=== PATIENT | female | born 1985 | race Caucasian/White ===

== ENCOUNTER 2016-09-19 14:24 | Inpatient (IN) ==
[2016-09-19] MEDS ORDERED: SODIUM CHLORIDE 1,000 ML IV ONE (15:00)
[2016-09-19 15:02] VITALS: BMI 24.1
[2016-09-19] MEDS: SODIUM CHLORIDE 0.9%-KCL 20 MEQ 1,000 ML IV SCH ×2 (15:03→16:08)
[2016-09-19 15:50] LABS: BASOPHILS % (AUTO) 0.3 % (0.0-3.0); EOSINOPHILS % (AUTO) 0.7 % (0.0-7.0); HEMATOCRIT 36.5 % (37.0-47.0); HEMOGLOBIN 12.5 g/dl (12.0-16.0); LYMPHOCYTES # (AUTO) 0.7 K/uL (0.60-3.4); LYMPHOCYTES % (AUTO) 23.5 (10.0-50.0); MEAN CORPUSCULAR HGB CONC 34.2 (31.8-35.4); MEAN CORPUSCULAR VOLUME 78.8 fl (81.0-99.0); MONOCYTES # (AUTO) 0.3 K/uL (0.4-2.0); MONOCYTES % (AUTO) 8.7 (0-10); NEUTROPHILS % (AUTO) 66.8; PLATELET COUNT 150 10^3/uL (140-440); RED BLOOD COUNT 4.63 10^6/ul (4.20-5.40); WHITE BLOOD COUNT 2.98 K/ul (4.6-10.2)
[2016-09-19] MEDS: TESSALON PERLES PO SCH ×2 (16:00→20:01)
[2016-09-19] MEDS: ROCEPHIN 1 GM in SODIUM CHLORIDE 100 ML IV SCH (16:00)
[2016-09-19 16:05] LABS: ALBUMIN/GLOBULIN RATIO 1.38; ANION GAP 11.6; BILIRUBIN,TOTAL 0.69 mg/dL (0.00-1.20); BUN/CREATININE RATIO 12.19; CALCIUM 8.8 mg/dL (8.2-10.2); CREATININE 0.82 mg/dL (0.60-1.30); POTASSIUM 3.6 mmol/L (3.5-5.10); TOTAL PROTEIN 6.9 g/dL (6.4-8.2)
[2016-09-19] MEDS: TYLENOL PO PRN (16:06)
[2016-09-19 16:19] LABS: FLU INTERNAL QC INTERNAL QC VALID; RAPID FLU A NEGATIVE (NEGATIVE); RAPID FLU B NEGATIVE (NEGATIVE)
[2016-09-19 18:01] LABS: SERUM PREGNANCY INTERNAL QC INTERNAL QC VALID
[2016-09-19] MEDS: TORADOL IVP PRN (19:09)
--- NOTE | 2016-09-19 19:54 | DI ---
EXAM: Two-view chest HISTORY: Bronchitis COMPARISON: None. FINDINGS: The cardiomediastinal silhouette is normal. The lungs are well expanded and clear bilate rally. Bony structures are unremarkable. IMPRESSION: No evidence of active pulmonary disease.
[2016-09-19 20:36] LABS: BILIRUBIN,URINE Negative (NEGATIVE); KETONES,URINE Negative (NEGATIVE); LEUKOCYTE ESTERASE ,URINE Negative (NEGATIVE); NITRITE,URINE Negative (NEGATIVE); PH,URINE 6.5 (5-9); PROTEIN,URINE Negative (NEGATIVE); URINE, BLOOD Negative (NEGATIVE)
[2016-09-19 20:37] LABS: ADD URINE MICROSCOPIC NO
[2016-09-20] MEDS: TYLENOL PO PRN (01:01)
[2016-09-20] MEDS: SODIUM CHLORIDE 0.9%-KCL 20 MEQ 1,000 ML IV SCH ×2 (03:40→14:51)
[2016-09-20] MEDS: TORADOL IVP PRN ×2 (08:28→19:24)
[2016-09-20] MEDS: TESSALON PERLES PO SCH ×3 (08:28→21:46)
[2016-09-20] MEDS: ROCEPHIN 1 GM in SODIUM CHLORIDE 100 ML IV SCH (08:28)
[2016-09-21] MEDS: SODIUM CHLORIDE 0.9%-KCL 20 MEQ 1,000 ML IV SCH ×4 (00:36→22:11)
[2016-09-21] MEDS: TORADOL IVP PRN ×2 (03:06→22:21)
[2016-09-21 07:18] LABS: BASOPHILS % (AUTO) 0.4 % (0.0-3.0); EOSINOPHILS % (AUTO) 0.4 % (0.0-7.0); HEMATOCRIT 31.2 % (37.0-47.0); HEMOGLOBIN 10.3 g/dl (12.0-16.0); LYMPHOCYTES # (AUTO) 1.8 K/uL (0.60-3.4); LYMPHOCYTES % (AUTO) 62.2 (10.0-50.0); MEAN CORPUSCULAR HEMOGLOBIN 26.5 pg (27.0-31.0); MEAN CORPUSCULAR VOLUME 80.4 fl (81.0-99.0); MONOCYTES # (AUTO) 0.2 K/uL (0.4-2.0); MONOCYTES % (AUTO) 8.5 (0-10); NEUTROPHILS # (AUTO) 0.8 K/ul (2.0-6.9); NEUTROPHILS % (AUTO) 28.5; PLATELET COUNT 114 10^3/uL (140-440); RED BLOOD COUNT 3.88 10^6/ul (4.20-5.40); WHITE BLOOD COUNT 2.83 K/ul (4.6-10.2)
[2016-09-21 07:35] LABS: BUN/CREATININE RATIO 6.06; CALCIUM 8.2 mg/dL (8.2-10.2); CREATININE 0.66 mg/dL (0.60-1.30)
[2016-09-21 08:09] LABS: FLU INTERNAL QC INTERNAL QC VALID; RAPID FLU A NEGATIVE (NEGATIVE); RAPID FLU B NEGATIVE (NEGATIVE)
[2016-09-21] MEDS: TESSALON PERLES PO SCH ×3 (08:55→20:18)
[2016-09-21] MEDS: ROCEPHIN 1 GM in SODIUM CHLORIDE 100 ML IV SCH (08:56)
[2016-09-21] MEDS: TYLENOL PO PRN (12:25)
[2016-09-21] MEDS ORDERED: ATIVAN PO SCH (22:00)
[2016-09-22 05:22] LABS: EOSINOPHILS % (AUTO) 0.3 % (0.0-7.0); HEMATOCRIT 31.6 % (37.0-47.0); HEMOGLOBIN 10.3 g/dl (12.0-16.0); LYMPHOCYTES # (AUTO) 1.8 K/uL (0.60-3.4); LYMPHOCYTES % (AUTO) 57.8 (10.0-50.0); MEAN CORPUSCULAR HEMOGLOBIN 26.5 pg (27.0-31.0); MEAN CORPUSCULAR HGB CONC 32.6 (31.8-35.4); MEAN CORPUSCULAR VOLUME 81.2 fl (81.0-99.0); MONOCYTES # (AUTO) 0.2 K/uL (0.4-2.0); MONOCYTES % (AUTO) 6.3 (0-10); NEUTROPHILS # (AUTO) 1.1 K/ul (2.0-6.9); NEUTROPHILS % (AUTO) 35.6; PLATELET COUNT 113 10^3/uL (140-440); RED BLOOD COUNT 3.89 10^6/ul (4.20-5.40); WHITE BLOOD COUNT 3.03 K/ul (4.6-10.2)
[2016-09-22 05:44] LABS: ANION GAP 9.8; BUN/CREATININE RATIO 8.82; CALCIUM 8.4 mg/dL (8.2-10.2); CREATININE 0.68 mg/dL (0.60-1.30); POTASSIUM 3.8 mmol/L (3.5-5.10)
[2016-09-22] MEDS: TESSALON PERLES PO SCH ×2 (08:24→14:41)
[2016-09-22] MEDS: ROCEPHIN 1 GM in SODIUM CHLORIDE 100 ML IV SCH (08:24)
[2016-09-22] MEDS: SODIUM CHLORIDE 0.9%-KCL 20 MEQ 1,000 ML IV SCH (10:06)
[2016-09-22 17:01] VITALS: BP 111/68; TEMP 97.5
--- NOTE | 2016-11-06 12:37 | HP ---
DISCUSSION: This is a 31 year old lady who called the office noting having a upper respiratory type symptoms with cough, congestion and fever. She was started on antibiotics, flu swabs were negative. She presented to the office saying that she was much worse and could not eat or drink she felt so bad. In the office she appeared clinically dehydrated with dry oral mucosa and rhonchus sounds in her chest. I was concerned about the possibility of pneumonia therefore she was admitted to my services for antibiotics, IV hydration and treatment for what I thought was going to end up being pneumonia. 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 No history of alcohol, tobacco or illicit drug use noted. FAMILY HISTORY: Reviewed and thought not to pertinent to discussion. REVIEW OF SYSTEMS: She has a mild headache with cough, she has had a productive cough with no hemoptysis, she has only been short of breath only with extreme exertion. No abdominal pain, blood in the stool, urinary symptoms or seizures. PHYSICAL EXAMINATION: V/S: Temperature 100, respiratory 18, blood pressure 120/80. HEENT: Pupils are round. NECK: Supple. CHEST: Scattered bronchi. CARDIOVASCULAR: Regular rate and rhythm. ABDOMEN: Soft, nontender. EXTREMITIES: Distal extremities without cyanosis or edema. ASSESSMENT: 1. Bronchitis with question early pneumonia 2. Poor appetite with impending dehydration PLAN: 1. Admission 2. Antibiotics 3. Bronchial dilators 4. IV fluids support 5. Please orders. MTDD
--- NOTE | 2016-11-06 12:43 | DS ---
PRINCIPAL DIAGNOSIS: 1. URI with bronchitis 2. Pancytopenia probably related to the above. DISCUSSION: This is a 31 year old lady who called the office noting having a upper respiratory type symptoms with cough, congestion and fever. She was started on antibiotics, flu swabs were negative. She presented to the office saying that she was much worse and could not eat or drink she felt so bad. In the office she appeared clinically dehydrated with dry oral mucosa and rhonchus sounds in her chest. I was concerned about the possibility of pneumonia therefore she was admitted to my services for antibiotics, IV hydration and treatment for what I thought was going to end up being pneumonia. CLINICAL COURSE: She was started on antibiotics, bronchial dilators. Her appetite was very poor. Initial WBC was known to be 2,098 and repeat was found to be 2,800. We continued IV support and antibiotics. She did defervesce. At time of discharge her WBC had come up to 3,000 and her plt count had dropped to 113 however clinically she felt better and at this point we felt that she was stable for discharge. Jody will be discharged on the . We are going to see her this and repeat her CBC. She is going to continue with rest and fluids at home. 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
== END 2016-09-22 18:10 | disposition home or self-care (01) | DRG 153 ==
LOC: MEDSURG B 14:24
PROVIDERS: ADMIT Family Medicine; ATTEND Family Medicine
DX: J06.9 Acute upper respiratory infection, unspecified (principal); J20.9 Acute bronchitis, unspecified; R50.9 Fever, unspecified
CPT/HCPCS: 36415; 80048; 80053; 81001; 84703; 85025; 87040; 87651; 87804; 87880

== ENCOUNTER 2017-02-03 17:41 | Emergency (ER) ==
[2017-02-03 17:46] VITALS: BP 128/84; TEMP 98; BMI 23.5
--- NOTE | 2017-02-03 18:36 | ED.PDOC ---
General ED Provider: Dr. KIM BROOKS Chief Complaint: Finger Pain/Injury Stated Complaint: hand injury Time Seen by Physician: 18:00 (seen with staff) Mode of Arrival: Walk-In Information Source: Patient Exam Limitations: No limitations Primary Care Provider: SILVIO CORDOBA Nursing and Triage Documentation Reviewed and Agree: Yes Musculoskeletal Complaint Exam - Hand/Wrist Complaint/Exam Location of Pain: Reports: Right, Hand, Wrist Mechanism of Injury: Reports: Trauma Onset/Duration: thursday while bowling Symptoms Are: Still present Onset of Pain: Reports: Days Initial Severity: Moderate Current Severity: Mild Location: Reports: Discrete Character: Reports: Aching Alleviating: Reports: Rest Aggravating: Reports: Movement Associated Signs and Symptoms: Denies: Swelling, Redness, Bruising, Fever, Weakness, Numbness, Tingling Differential Diagnoses: Closed Fracture, Sprain, Strain Review of Systems - Review Of Systems Constitutional: Reports: No symptoms Eyes: Reports: No symptoms Ears, Nose, Mouth, Throat: Reports: No symptoms Respiratory: Reports: No symptoms Cardiac: Reports: No symptoms GI: Reports: No symptoms : Reports: No symptoms Musculoskeletal: Reports: Joint pain (right hand ) Skin: Reports: No symptoms Neurological: Reports: No symptoms Endocrine: Reports: No symptoms Hematologic/Lymphatic: Reports: No symptoms All Other Systems: Reviewed and Negative Past Medical History - Past Medical History Previously Healthy: Yes Endocrine: Reports: None Cardiovascular: Reports: None Respiratory: Reports: None Hematological: Reports: None Gastrointestinal: Reports: None Genitourinary: Reports: None Neuro/Psych: Reports: None Musculoskeletal: Reports: None Cancer: Reports: None Last Menstrual Period: last week - Surgical History General Surgical History: Reports: None - Family History Family History: Reports: None - Social History Smoking Status: Never smoker Hx Substance Use: No Alcohol Screening: Occasionally Physical Exam - Physical Exam Appearance: Well-appearing, No pain distress, Well-nourished Eyes: RINA, EOMI, Conjunctiva clear ENT: Ears normal, Nose normal, Oropharynx normal Respiratory: Airway patent, Breath sounds clear, Breath sounds equal, Respirations nonlabored Cardiovascular: RRR, Pulses normal, No rub, No murmur GI/: Soft, Nontender, No masses, Bowel sounds normal, No Organomegaly Musculoskeletal: ROM intact, No edema, No calf tenderness, Limited ROM (5th mcp brusing ) Skin: Warm, Dry, Normal color Neurological: Sensation intact, Motor intact, Reflexes intact, Cranial nerves intact, Alert, Oriented Psychiatric: Affect appropriate, Mood appropriate Critical Care Note - Critical Care Note Total Time (mins): 0 Course - Course Orders, Labs, Meds: Orders Category Date Time Status HAND, RIGHT 3 VIEWS Stat RADS 02/03/17 17:54 Taken WRIST, RIGHT 3 VIEWS Stat RADS 02/03/17 17:55 Taken Vital Signs: Temp Pulse Resp BP Pulse Ox 02/03/17 17:42 98 F 70 20 128/84 98 Departure - Departure Time of Disposition: 19:00 (seen with staff photos attached ) Disposition: HOME SELF-CARE Discharge Problem: Injury of finger Sprain of hand, right Qualifiers: Encounter type: initial encounter Qualifier Code: (S63.91XA) Sprain of unspecified part of right wrist and hand, initial encounter Instructions: Hand Sprain (ED) Condition: Good Pt referred to PMD for follow-up: Yes Allergies/Adverse Reactions: Allergies No Known Allergies Allergy (Verified 02/03/17 17:47) Home Medications: Ambulatory Orders Hydrocodone/Acetaminophen [[place] 10-325 Tablet] 1 each PO Q8HR #7 tablet
--- NOTE | 2017-02-04 05:39 | DI ---
EXAM: Right hand, three views, 02/03/2017 HISTORY: Pain COMPARISON: 02/03/2017 FINDINGS / IMPRESSION: The visualized osseous structures appear intact. Anatomic alignment appears within normal limits. There is no evidence of fracture or dislocation. No acute osseous abnormality.
--- NOTE | 2017-02-04 05:53 | DI ---
EXAM: Right wrist, three views, 02/03/2017 HISTORY: Trauma COMPARISON: 02/03/2017 FINDINGS / IMPRESSION: The visualized osseous structures appear intact. Anatomic alignment appears within normal limits. There is no evidence of fracture or dislocation. No acute osseous abnormality.
== END 2017-02-03 19:00 | disposition home or self-care (01) ==
LOC: ED 17:41
DX: S63.91XA Sprain of unspecified part of right wrist and hand, initial encounter (principal); Y93.54 Activity, bowling
CPT/HCPCS: 99283

== ENCOUNTER 2017-10-27 12:10 | Outpatient (CLI) | END 2017-10-27 12:11 | disposition home or self-care (01) | LOC: FCC-LAB 12:10 | PROVIDERS: ATTEND Family Medicine | DX: Z13.220 Encounter for screening for lipoid disorders (principal); F41.9 Anxiety disorder, unspecified; D64.9 Anemia, unspecified | CPT/HCPCS: 36415; 80053; 80061; 84443; 85025 ==

== ENCOUNTER 2018-01-15 12:46 | Emergency (ER) | payer OTHER ==
[2018-01-15 12:46] VITALS: BMI 23.5
[2018-01-15 12:49] VITALS: BP 136/90; TEMP 99.2
--- NOTE | 2018-01-15 15:09 | CT ---
EXAM: CTA chest for PE HISTORY: Shortness of breath COMPARISON: None TECHNIQUE: CTA of the chest was performed from the lung apices to the upper abdomen after 100 ml of Omnipaque IV contrast was administered using PE protocol. 3-D imaging was also provided. FINDINGS: There is no filling defect in the pulmonary arteries to the level of the subsegmental pulm onary arteries. The heart is normal without signs of ventricular strain. Heart is unremarkable with out effusion. There are few scattered nonenlarged lymph nodes. There is no pneumothorax or pleural effusion. There is consolidation and ground-glass in the medial left lower lobe. There is minimal consolidation in the right lung base with ground-glass. Limited views of the soft tissues in the upper abdomen are unremarkable. The osseous structures demo nstrate degenerative disease of the spine. IMPRESSION: 1. No pulmonary embolism. 2. Bilateral lower lobe consolidations with minimal ground-glass suggestive of pneumonia.
[2018-01-15] MEDS ORDERED: ROCEPHIN IM STA (15:12)
[2018-01-15] MEDS ORDERED: LIDOCAINE HCL 1% SDV IM STA (15:12)
[2018-01-15] MEDS ORDERED: DECADRON 4 MG/ML SDV IM STA (15:14)
--- NOTE | 2018-01-15 15:16 | ED.PDOC ---
General ED Provider: Dr. KIM BROOKS Chief Complaint: Respiratory Complaint Stated Complaint: SHORT OF AIR Time Seen by Physician: 12:46 (JORGITO PRESENT AT ALL TIMES ALSO SON ANGUIANO PRESENT TOO) Mode of Arrival: Walk-In Information Source: Patient Exam Limitations: No limitations Primary Care Provider: NERISSA BARRIGA Nursing and Triage Documentation Reviewed and Agree: Yes Does patient meet sepsis criteria?: No System Inflammatory Response Syndrome: Not Applicable Sepsis Protocol: For patient's 13 years and over: Temp is 96.8 and below OR 101 and greater Pulse >90 BPM Resp >20/minute Acutely Altered Mental Status Are patient's symptoms suggestive of a new infection, such as: -Pneumonia -Skin, Soft Tissue -Endocarditis -UTI -Bone, Joint Infection -Implantable Device -Acute Abdominal Infection -Wound Infection -Meningitis -Blood Stream Catheter Infection -Unknown Respiratory Complaint Exam - Respiratory Complaint/Exam Onset/Duration: 2 DAYS Symptoms Are: Still present Timing: Constant, Intermittent Initial Severity: Mild Current Severity: Mild Location: Chest Character: Reports: Non-productive cough, Dry cough Aggravating: Reports: None Alleviating: Reports: None Associated Signs and Symptoms: Denies: Rapid breathing, Dyspnea, Fever, Chills, Chest pain, Pleuritic chest pain, Wheezing, Hemoptysis, Dizziness, Calf pain, Calf swelling, Edema, URI, Nasal congestion, Hoarseness, Sinus discomfort, Vomiting, Sore throat, Weight loss, Decreased oral intake, Increased thirst, Increased appetite, Increased urination Related History: Reports: Similar episode History of Healthcare-Acquired Pneumonia: No Related Surgical History: Reports: None Pulmonary Embolism Risk Factors: Smoking Cardiac Risk Factors: Reports: Smoking (ELECTRONIC ) Pseudomonas Risk Factors: Reports: None Tuberculosis Risk Factors: Reports: None Status Asthmaticus Risk Factors: Reports: None Home Oxygen Use: No Recent Stress Test: No Recent Echo/LV Function: No Current Antibiotic Use: No Current Asthma Medication Use: No Respiratory Distress: None Inadequate Respiratory Effort: No Dysphagia Present: No Stridor Present: No JVD Present: No Retractions: Not Present Diminished Breath Sounds: No Sinus Tenderness: None Grunting Respirations: No Kussmaul Respirations: No Differential Diagnoses: Pneumonia, Pulmonary Embolism, Bronchitis, Lower Resp. Infection Quality Indicators For Pneumonia: Antibiotics in 6hr-admit, SpO2 assessed, Empiric Antibiotic Rx, Vital signs, Mental status assessed Non-Traumatic Chest Pain Syncope: EKG Performed Review of Systems - Review Of Systems Constitutional: Reports: No symptoms Eyes: Reports: No symptoms Ears, Nose, Mouth, Throat: Reports: No symptoms Respiratory: Reports: Cough Cardiac: Reports: No symptoms GI: Reports: No symptoms : Reports: No symptoms Musculoskeletal: Reports: No symptoms Skin: Reports: No symptoms Neurological: Reports: No symptoms Endocrine: Reports: No symptoms Hematologic/Lymphatic: Reports: No symptoms All Other Systems: Reviewed and Negative Past Medical History - Past Medical History Previously Healthy: Yes Endocrine: Reports: None Cardiovascular: Reports: None Respiratory: Reports: None Hematological: Reports: None Gastrointestinal: Reports: None Genitourinary: Reports: None Neuro/Psych: Reports: None Musculoskeletal: Reports: None Cancer: Reports: None Last Menstrual Period: 12/26/17 - Surgical History General Surgical History: Reports: None - Family History Family History: Reports: None - Social History Smoking Status: Vaping Hx Substance Use: No Alcohol Screening: Occasionally Physical Exam - Physical Exam Appearance: Well-appearing, No pain distress, Well-nourished Eyes: RINA, EOMI, Conjunctiva clear ENT: Ears normal, Nose normal, Oropharynx normal Respiratory: Airway patent, Breath sounds clear, Breath sounds equal, Respirations nonlabored Cardiovascular: RRR, Pulses normal, No rub, No murmur GI/: Soft, Nontender, No masses, Bowel sounds normal, No Organomegaly Musculoskeletal: Normal strength, ROM intact, No edema, No calf tenderness Skin: Warm, Dry, Normal color Neurological: Sensation intact, Motor intact, Reflexes intact, Cranial nerves intact, Alert, Oriented Psychiatric: Affect appropriate, Mood appropriate Interpretation - Radiology Interpretation Radiology Interpretation By: Radiologist Radiology Results: No acute changes Critical Care Note - Critical Care Note Total Time (mins): 0 Course - Course Hematology/Chemistry: 01/15/18 13:20 01/15/18 13:20 Orders, Labs, Meds: Lab Review 01/15/18 01/15/18 01/15/18 13:20 13:20 13:20 WBC 6.89 RBC 4.50 Hgb 12.3 Hct 36.2 L MCV 80.4 L MCH 27.3 MCHC 34.0 RDW Coeff of Gerardo 13.0 Plt Count 152 Immature Gran % (Auto) 0.3 Neut % (Auto) 72.5 Lymph % (Auto) 17.0 [place] % (Auto) 8.9 Eos % (Auto) 1.0 Baso % (Auto) 0.3 Immature Gran # (Auto) 0.0 Neut # (Auto) 5.0 Lymph # (Auto) 1.2 [place] # (Auto) 0.6 Eos # (Auto) 0.1 Baso # (Auto) 0.0 Sodium 139 Potassium 3.5 Chloride 108 H Carbon Dioxide 22 Anion Gap 12.5 BUN 13 Creatinine 0.74 Estimated GFR (MDRD) 90.00 BUN/Creatinine Ratio 17.56 Glucose 87 Calcium 9.4 Total Bilirubin 1.0 AST 26 ALT 22 Alkaline Phosphatase 91 Total Protein 7.3 Albumin 3.7 Globulin 3.6 Albumin/Globulin Ratio 1.03 Serum , Qual Negative Orders Category Date Time Status NPO REMINDER: IMAGING ONCE CARE 01/15/18 13:09 Completed ED IV/MEDIPORT/POWERPORT .ONCE EMERGENCY 01/15/18 13:09 Active CBC W/ AUTO DIFF Stat LAB 01/15/18 13:20 Completed COMPREHENSIVE METABOLIC PANEL Stat LAB 01/15/18 13:20 Completed SERUM Stat LAB 01/15/18 13:20 Completed 0.9 % Sodium Chloride [Saline Flush] MEDS 01/15/18 13:09 Active 1 syr IVF PRN PRN Ceftriaxone Sodium [Rocephin] MEDS 01/15/18 15:12 Stat 1 gm IM ONCE STA Dexamethasone 4 mg/ml Inj [Decadron 4 mg/ml Sdv] MEDS 01/15/18 15:14 Stat 4 mg IM ONCE STA Lidocaine HCl/Pf [Lidocaine HCl 1% Sdv] MEDS 01/15/18 15:12 Stat 2.1 ml IM ONCE STA CT CHEST PE PROTOCOL Stat RADS 01/15/18 13:08 Completed Medications Generic Name Dose Route Start Last Admin Trade Name Freq PRN Reason Stop Dose Admin Sodium Chloride 1 syr 01/15/18 13:09 Saline Flush IVF PRN PRN To flush IV Discontinued Medications Generic Name Dose Route Start Last Admin Trade Name Freq PRN Reason Stop Dose Admin Ceftriaxone Sodium 1 gm 01/15/18 15:12 Rocephin IM 01/15/18 15:13 ONCE STA Dexamethasone Sodium Phosphate 4 mg 01/15/18 15:14 Decadron 4 Mg/Ml Sdv IM 01/15/18 15:15 ONCE STA Lidocaine HCl 2.1 ml 01/15/18 15:12 Lidocaine Hcl 1% Sdv IM 01/15/18 15:13 ONCE STA Vital Signs: Temp Pulse Resp BP Pulse Ox 01/15/18 12:46 99.2 F 78 20 136/90 98 Departure - Departure Time of Disposition: 15:20 (ALL INSTRUCTIONS GIVEN WITH NURSE PRESENT) Disposition: HOME SELF-CARE Discharge Problem: Pneumonia Qualifiers: Pneumonia type: due to unspecified organism Laterality: bilateral Lung location : lower lobe of lung Qualified Code(s): J18.1 - Lobar pneumonia, unspecified organism Instructions: Pneumonia (ED) Condition: Good Pt referred to PMD for follow-up: Yes IPMP verified?: No Additional Instructions: Please call your Family Physician as soon as possible to schedule a follow-up appointment. Allergies/Adverse Reactions: Allergies No Known Allergies Allergy (Verified 01/15/18 12:51) Disposition Discussed With: Patient
[2018-01-15] MEDS ORDERED: ROCEPHIN 1 GM in SODIUM CHLORIDE 50 ML IV STA (15:30)
== END 2018-01-15 16:28 | disposition home or self-care (01) ==
LOC: ED 12:46
DX: J18.1 Lobar pneumonia, unspecified organism (principal); F17.210 Nicotine dependence, cigarettes, uncomplicated
CPT/HCPCS: 36415; 80053; 84703; 85025; 96365; 96372; 96375; 99283

== ENCOUNTER 2018-09-16 11:42 | Outpatient (CLI) | END 2018-09-16 11:43 | disposition home or self-care (01) | LOC: RHC-LAB 11:42 → FCC-LAB 11:43 | PROVIDERS: ATTEND Family Medicine | DX: J06.9 Acute upper respiratory infection, unspecified (principal) | CPT/HCPCS: 87502 ==

== ENCOUNTER 2018-11-30 10:16 | Outpatient (CLI) | END 2018-11-30 10:17 | disposition home or self-care (01) | LOC: LAB 10:16 | PROVIDERS: ATTEND Registered Nurse | DX: O14.00 Mild to moderate pre-eclampsia, unspecified trimester (principal); Z67.91 Unspecified blood type, Rh negative | CPT/HCPCS: 36415; 80053; 82570; 82947; 83615; 84156; 84550; 85025; 86592; 87389 ==

== ENCOUNTER 2019-03-07 11:50 | Outpatient (CLI) | END 2019-03-07 11:51 | disposition home or self-care (01) | LOC: RHC-LAB 11:50 → FCC-LAB 11:51 | PROVIDERS: ATTEND Family Medicine | DX: R53.82 Chronic fatigue, unspecified (principal); D64.9 Anemia, unspecified | CPT/HCPCS: 36415; 80053; 84443; 85025 ==

== ENCOUNTER 2023-08-07 05:13 | Observation (INO) ==
[2023-08-07] MEDS ORDERED: SODIUM CHLORIDE 1,000 ML IV ONE (06:09)
[2023-08-07 06:23] LABS: BASOPHILS % (AUTO) 0.2 % (0.0-3.0); HEMATOCRIT 37.2 % (37.0-47.0); HEMOGLOBIN 12.2 g/dl (12.0-16.0); IMMATURE GRANULOCYTE % (AUTO) 0.2 % (0.0-5.0); LYMPHOCYTES # (AUTO) 1.4 K/uL (0.60-3.4); LYMPHOCYTES % (AUTO) 22.5 (10.0-50.0); MEAN CORPUSCULAR HEMOGLOBIN 27.4 pg (27.0-31.0); MEAN CORPUSCULAR HGB CONC 32.8 (31.8-35.4); MEAN CORPUSCULAR VOLUME 83.4 fl (81.0-99.0); MONOCYTES # (AUTO) 0.5 K/uL (0.4-2.0); MONOCYTES % (AUTO) 7.7 (0-10); NEUTROPHILS # (AUTO) 4.2 K/ul (2.0-6.9); NEUTROPHILS % (AUTO) 69.4 % (42.2-75.2); PLATELET COUNT 171 10^3/uL (140-440); RDW COEFFICIENT OF VARIATION 13.3 % (11.6-14.8); RED BLOOD COUNT 4.46 10^6/ul (4.20-5.40); WHITE BLOOD COUNT 5.99 K/ul (4.6-10.2)
[2023-08-07 06:27] LABS: BILIRUBIN,URINE Negative (NEGATIVE); CLARITY,URINE Clear (CLEAR); COLOR,URINE Yellow (YELLOW); GLUCOSE, URINE (UA) Negative (NEGATIVE); KETONES,URINE Trace (NEGATIVE); LEUKOCYTE ESTERASE ,URINE Negative (NEGATIVE); NITRITE,URINE Negative (NEGATIVE); PROTEIN,URINE 1+ (NEGATIVE); URINE, BLOOD Trace-intact (NEGATIVE); UROBILINOGEN,URINE 0.2 (0.2)
[2023-08-07 06:33] LABS: SQUAMOUS EPITHELIAL CELL,UR 30-50 (0-5)
[2023-08-07 06:34] LABS: MUCUS,URINE 1+ (NOT PRESENT); URINE WBC, MICROSCOPIC 0-2 (0-2)
[2023-08-07 06:37] LABS: ALANINE AMINOTRANSFERASE 18.3 U/L (0-35); ALBUMIN 4.55 g/dL (3.5-5.0); ALKALINE PHOSPHATASE 72.8 U/L (38-126); ASPARTATE AMINO TRANSFERASE 24.6 U/L (14-36); BILIRUBIN,TOTAL 0.92 mg/dL (0.2-1.3); BLOOD UREA NITROGEN 10.4 mg/dL (7-17); CALCIUM 9.28 mg/dL (8.4-10.2); CHLORIDE 112.5 mmol/L (98-107); CREATININE 0.64 mg/dL (0.60-1.30); GLUCOSE 115.4 mg/dL (74-106); POTASSIUM 4.09 mmol/L (3.5-5.1); SODIUM 139.9 mmol/L (134.5-145); TOTAL PROTEIN 7.61 g/dL (6.3-8.2)
[2023-08-07 06:38] LABS: AMPHETAMINE SCREEN,URINE NEGATIVE (NEGATIVE); BARBITURATE SCREEN,URINE NEGATIVE (NEGATIVE); BENZODIAZEPINES SCREEN,URINE POSITIVE (NEGATIVE); CANNABINOID SCREEN,URINE NEGATIVE (NEGATIVE); COCAIN SCREEN,URINE NEGATIVE (NEGATIVE); METHADONE URINE SCREEN NEGATIVE (NEGATIVE); METHAMPHETAMINES SCREEN,URINE NEGATIVE (NEGATIVE); OPIATE SCREEN,URINE NEGATIVE (NEGATIVE); OXYCODONE URINE SCREEN NEGATIVE (NEGATIVE); PHENCYCLIDINE SCREEN,URINE NEGATIVE (NEGATIVE); TRICYCLIC ANTIDEPRESSANTS URIN NEGATIVE (NEGATIVE)
--- NOTE | 2023-08-07 07:19 | DI ---
EXAM: CHEST, 2 VIEWS. HISTORY: Shortness of breath COMPARISON: 08/06/2023 IMPRESSION: Cardiomediastinal countours appear stable. There is no focal pulmonary consolidation. N o pleural effusion or pneumothorax. No acute cardiopulmonary process.
--- NOTE | 2023-08-07 07:24 | ED.PDOC ---
General <MAICO CASIANO MD - Last Filed: 08/07/23 07:35> ED Provider: Dr. MAICO CASIANO MD Chief Complaint: Palpitations Stated Complaint: PALPATATIONS WITH MINIMAL EFFORT Time Seen by Provider: 08/07/23 05:14 Mode of Arrival: Walk-In Information Source: Patient and Family Primary Care Provider: NERISSA BARRIGA MD Does Patient Take Opioids?: No Is Patient Opioid Naive?: Yes What is Opioid Naive?: *Opioid Naive implies the patient is not already taking opioids or not chronically receiving opioids on a daily basis. *PRN dosing is not "usually" associated with tolerance. *Patients are at higher risk of over-sedation and aspiration. Is Patient Opioid Tolerant?: No What is Opioid Tolerant?: *Opioid Tolerance implies less than the expected response to an opioid. *Acquired tolerance is defined by the patient taking 60mg of oral morphine daily (or equianalgesic dose of another opioid) for 1 week or more. *Often associated with chronic pain. *May take more than usual dose to achieve desired pain control. <SEBASTIEN MCCRACKEN DO - Last Filed: 08/07/23 09:07> Nursing and Triage Documentation Reviewed and Agree: Yes Cardiovascular Complaint Exam <MAICO CASIANO MD - Last Filed: 08/07/23 07:35> Palpitations Complaint/Exam Onset/Duration: TODAY Symptoms Are: Still present Timing: Intermittent Initial Severity: Moderate Current Severity: Mild Character: Reports Fast (Pt reports getting up from bed to bathroom and having onset of hear rate of ~130/min) Aggravating: Reports Exertion Alleviating: Reports Rest Related Surgical History: Reports None Pulmonary Embolism Risk Factors: Reports None Atrial Fibrillation Risk Factors: Reports None Quality Indicators for AMI: EKG in 10min. Review of Systems <SEBASTIEN MCCRACKEN DO - Last Filed: 08/07/23 09:07> Review Of Systems Constitutional: Reports Weakness PFSH <MAICO CASIANO MD - Last Filed: 08/07/23 07:35> Medical History Heavy alcohol consumption F10.90 - Alcohol use, unspecified, uncomplicated (ICD-10) Depression F32.9 - Major depressive disorder, single episode, unspecified (ICD-10) Anxiety Lexapro 10mg to 20mg 11/17/22. Buspar 7.5mg BID to 10mg BID. 11/17/22 F41.9 - Anxiety disorder, unspecified (ICD-10) History of alcohol use Self reported, self controlled, self eliminated! No DUI, no public intox. Z87.898 - Personal history of other specified conditions (ICD-10) Family History Mother Hypertension FATHER Diabetes Hyperlipidemia Maternal grandmother Cancer breast and uterine Paternal grandmother Diabetes Social History Smoking and tobacco status: Current every day smoker Tobacco type: e-cigarettes Tobacco: How many years used: 3 Quit status: considering quitting Second hand smoke exposure: No Alcohol intake: current Alcohol intake frequency: a few times a month Alcohol type: beer Substance use type: does not use Phoebe/sabianism: HINDU Special phoebe needs: No Adopted: No Household members: children Housing: house Marital status: D Lives independently: Yes Number of children: 5 Highest education level completed: Bachelor's degree Financial difficulty paying for basics: not very hard service: No jail: No Current occupational status: previously employed Current occupational exposures/hazards: No Pets and animals: No Leisure activites: other History of recent travel: No Sexually active: No Do you think of yourself as: straight/heterosexual Current gender identity: female Seatbelt use: always Helmet use: No Drives intoxicated or rides with intoxicated carry all driver: No Water heater temperature set < 120 degrees: Yes Working smoke detector in home: Yes Fire extinguisher in home: Yes Carbon monoxide detector in home: No (plan on purchasing ) Firearms in home: No Surgical History Wrist surgery History of section times 3 Z98.891 - History of uterine scar from previous surgery (ICD-10) Female Reproductive History Menstrual Hx Hysterectomy: No Hx Tubal Ligation: No Physical Exam <MAICO CASIANO MD - Last Filed: 08/07/23 07:35> Physical Exam Appearance: Reports Well-appearing Ill-appearing: None Pain Distress: None Eyes: Reports RINA Neck: Supple Respiratory: Reports Airway patent and Breath sounds diminished (R base sounds diminished) Cardiovascular: Reports RRR and Pulses normal Musculoskeletal: Reports Normal strength Skin: Reports Warm and Dry Neurological: Reports Sensation intact and Motor intact Course <MAICO CASIANO MD - Last Filed: 08/07/23 07:35> Course 08/07/23 06:18 08/07/23 06:18 Orders, Labs, Meds: Lab Review 08/07/23 08/07/23 08/07/23 06:18 06:20 07:56 WBC 5.99 RBC 4.46 Hgb 12.2 Hct 37.2 MCV 83.4 MCH 27.4 MCHC 32.8 RDW Coeff of Gerardo 13.3 Plt Count 171 Immature Gran % (Auto) 0.2 Neut % (Auto) 69.4 Lymph % (Auto) 22.5 Taylor % (Auto) 7.7 Eos % (Auto) 0.0 Baso % (Auto) 0.2 Neut # (Auto) 4.2 Lymph # (Auto) 1.4 Taylor # (Auto) 0.5 Eos # (Auto) 0.0 Baso # (Auto) 0.0 Immature Gran # (Auto) 0.0 Sodium 139.9 Potassium 4.09 Chloride 112.5 H Carbon Dioxide 17.0 L Anion Gap 14.49 BUN 10.4 Creatinine 0.64 Estimated GFR (MDRD) 103.00 BUN/Creatinine Ratio 16.25 Glucose 115.4 H Lactic Acid 1.26 Calcium 9.28 Total Bilirubin 0.92 AST 24.6 ALT 18.3 Alkaline Phosphatase 72.8 Troponin I < 0.012 NT-Pro-B Natriuret Pep 78 Total Protein 7.61 Albumin 4.55 Globulin 3.06 Albumin/Globulin Ratio 1.48 Urine Color Yellow Urine Clarity Clear Urine pH 6.0 Ur Specific [place] >=1.030 Urine Protein 1+ H Urine Glucose (UA) Negative Urine Ketones Trace H Urine Blood Trace-intact H Urine Nitrite Negative Urine Bilirubin Negative Urine Urobilinogen 0.2 Ur Leukocyte Esterase Negative Urine Microscopic RBC 2-5 Urine Microscopic WBC 0-2 Ur Squamous Epith Cells 30-50 Urine Mucus 1+ Urine Opiates Screen Negative Ur Oxycodone Screen Negative Urine Methadone Screen Negative Ur Barbiturates Screen Negative U Tricyclic Antidepress Negative Ur Phencyclidine Scrn Negative Ur Amphetamine Screen Negative U Methamphetamines Scrn Negative U Benzodiazepines Scrn Positive H Urine Cocaine Screen Negative U Cannabinoids Screen Negative Orders Category Date Time Status EKG-(ED ONLY) Stat CARDIO 08/07/23 05:48 Completed NPO REMINDER: IMAGING ONCE CARE 08/07/23 07:15 Active ED IV/MEDIPORT/POWERPORT .ONCE EMERGENCY 08/07/23 06:08 Active CBC W/ AUTO DIFF Stat LAB 08/07/23 06:18 Completed CMP [COMPREHENSIVE METABOLIC PANEL] Stat LAB 08/07/23 06:18 Completed LACTIC ACID Stat LAB 08/07/23 06:18 Completed PROBNP ED [NT-PROBNP(ED)] Stat LAB 08/07/23 06:18 Completed TROPONIN I Stat LAB 08/07/23 07:56 Completed URINALYSIS C & S IF INDICATED Stat LAB 08/07/23 06:20 Completed URINE DRUG SCREEN (RAPID FOR ED) [DRUG SCREEN, URINE, LAB 08/07/23 06:20 Completed RAPID] Stat 0.9 % Sodium Chloride [Saline Flush] Meds 08/07/23 06:08 Active 1 syr IVF PRN PRN Enoxaparin Sodium [Lovenox] Meds 08/07/23 08:23 Discontinued 86 mg SUBCUT ONCE ONE Sodium Chloride 0.9% [Sodium Chloride] 1,000 ml Meds 08/07/23 06:09 Discontinued IV BOLUS CTA CHEST PE PROTOCOL Stat RADS 08/07/23 07:15 Completed CXR [CHEST, 2 VIEWS PA & LAT] Stat RADS 08/07/23 06:06 Completed Medications Generic Name Dose Route Start Last Admin Trade Name Freq PRN Reason Stop Dose Admin Sodium Chloride 1 syr 08/07/23 06:08 0.9% Sodium Chloride 10 Ml Disp.Syrin IVF PRN PRN To flush IV Discontinued Medications Generic Name Dose Route Start Last Admin Trade Name Freq PRN Reason Stop Dose Admin Enoxaparin Sodium 86 mg 08/07/23 08:23 08/07/23 08:28 Enoxaparin Sodium 100 Mg/Ml Syr SUBCUT 08/07/23 08:24 86 mg ONCE ONE Administration Sodium Chloride 1,000 mls @ 1,000 mls/hr 08/07/23 06:09 08/07/23 07:57 Sodium Chloride IV 08/07/23 07:08 Infused BOLUS ONE Infusion Vital Signs: Temp Pulse Resp BP Pulse Ox 08/07/23 05:32 98.3 F 84 24 H 157/95 H 95 <SEBASTIEN MCCRACKEN, DO - Last Filed: 08/07/23 09:07> Course Orders, Labs, Meds: Lab Review 08/07/23 08/07/23 08/07/23 06:18 06:20 07:56 WBC 5.99 RBC 4.46 Hgb 12.2 Hct 37.2 MCV 83.4 MCH 27.4 MCHC 32.8 RDW Coeff of Gerardo 13.3 Plt Count 171 Immature Gran % (Auto) 0.2 Neut % (Auto) 69.4 Lymph % (Auto) 22.5 Taylor % (Auto) 7.7 Eos % (Auto) 0.0 Baso % (Auto) 0.2 Neut # (Auto) 4.2 Lymph # (Auto) 1.4 Taylor # (Auto) 0.5 Eos # (Auto) 0.0 Baso # (Auto) 0.0 Immature Gran # (Auto) 0.0 Sodium 139.9 Potassium 4.09 Chloride 112.5 H Carbon Dioxide 17.0 L Anion Gap 14.49 BUN 10.4 Creatinine 0.64 Estimated GFR (MDRD) 103.00 BUN/Creatinine Ratio 16.25 Glucose 115.4 H Lactic Acid 1.26 Calcium 9.28 Total Bilirubin 0.92 AST 24.6 ALT 18.3 Alkaline Phosphatase 72.8 Troponin I < 0.012 NT-Pro-B Natriuret Pep 78 Total Protein 7.61 Albumin 4.55 Globulin 3.06 Albumin/Globulin Ratio 1.48 Urine Color Yellow Urine Clarity Clear Urine pH 6.0 Ur Specific [place] >=1.030 Urine Protein 1+ H Urine Glucose (UA) Negative Urine Ketones Trace H Urine Blood Trace-intact H Urine Nitrite Negative Urine Bilirubin Negative Urine Urobilinogen 0.2 Ur Leukocyte Esterase Negative Urine Microscopic RBC 2-5 Urine Microscopic WBC 0-2 Ur Squamous Epith Cells 30-50 Urine Mucus 1+ Urine Opiates Screen Negative Ur Oxycodone Screen Negative Urine Methadone Screen Negative Ur Barbiturates Screen Negative U Tricyclic Antidepress Negative Ur Phencyclidine Scrn Negative Ur Amphetamine Screen Negative U Methamphetamines Scrn Negative U Benzodiazepines Scrn Positive H Urine Cocaine Screen Negative U Cannabinoids Screen Negative Orders Category Date Time Status EKG-(ED ONLY) Stat CARDIO 08/07/23 05:48 Completed NPO REMINDER: IMAGING ONCE CARE 08/07/23 07:15 Active ED IV/MEDIPORT/POWERPORT .ONCE EMERGENCY 08/07/23 06:08 Active CBC W/ AUTO DIFF Stat LAB 08/07/23 06:18 Completed CMP [COMPREHENSIVE METABOLIC PANEL] Stat LAB 08/07/23 06:18 Completed LACTIC ACID Stat LAB 08/07/23 06:18 Completed PROBNP ED [NT-PROBNP(ED)] Stat LAB 08/07/23 06:18 Completed TROPONIN I Stat LAB 08/07/23 07:56 Completed URINALYSIS C & S IF INDICATED Stat LAB 08/07/23 06:20 Completed URINE DRUG SCREEN (RAPID FOR ED) [DRUG SCREEN, URINE, LAB 08/07/23 06:20 Completed RAPID] Stat 0.9 % Sodium Chloride [Saline Flush] Meds 08/07/23 06:08 Active 1 syr IVF PRN PRN Enoxaparin Sodium [Lovenox] Meds 08/07/23 08:23 Discontinued 86 mg SUBCUT ONCE ONE Sodium Chloride 0.9% [Sodium Chloride] 1,000 ml Meds 08/07/23 06:09 Discontinued IV BOLUS CTA CHEST PE PROTOCOL Stat RADS 08/07/23 07:15 Completed CXR [CHEST, 2 VIEWS PA & LAT] Stat RADS 08/07/23 06:06 Completed Medications Generic Name Dose Route Start Last Admin Trade Name Freq PRN Reason Stop Dose Admin Sodium Chloride 1 syr 08/07/23 06:08 0.9% Sodium Chloride 10 Ml Disp.Syrin IVF PRN PRN To flush IV Discontinued Medications Generic Name Dose Route Start Last Admin Trade Name Freq PRN Reason Stop Dose Admin Enoxaparin Sodium 86 mg 08/07/23 08:23 08/07/23 08:28 Enoxaparin Sodium 100 Mg/Ml Syr SUBCUT 08/07/23 08:24 86 mg ONCE ONE Administration Sodium Chloride 1,000 mls @ 1,000 mls/hr 08/07/23 06:09 08/07/23 07:57 Sodium Chloride IV 08/07/23 07:08 Infused BOLUS ONE Infusion Vital Signs: Temp Pulse Resp BP Pulse Ox 08/07/23 05:32 98.3 F 84 24 H 157/95 H 95 I assumed care from Dr. Casiano, Pending CT PE his concner was to rule out PE, I added troponin to work up as well MDM: Patient is a 38 yo F here for weakness, viral symptoms, concern for mold and palpitations I assumed care form Dr. Casiano Patient afebrile and vitally stable Hx from patient and Dr. Casiano chart review by me 3+ labs and 3 image results reviewed by me Consults to Hospitalist Who agrees with lovenox 1 mg/kg and admission WDX: PE-multiple (no R heart strain), weakness, palpitations, discomfort acute high complexity DDX: I considered saddle PE< cardiogenic shock, hypoxia but these were not found SDOH: Patient will improve with treatment, observation and hemonch follow up Patient and I discussed findings and plan, plan to remove her Nuva ring Patient stable for admission BONNIE Risk Score <MAICO CASIANO MD - Last Filed: 08/07/23 07:35> BONNIE Risk Score: Risk Score Odds of by 30D 0 0.1 (0.1-0.2) 1 0.3 (0.2-0.3) 2 0.4 (0.3-0.5) 3 0.7 (0.6-0.9) 4 1.2 (1.0-1.5) 5 2.2 (1.9-2.6) 6 3.0 (2.5-3.6) 7 4.8 (3.8-6.1) <MAICO CASIANO MD - Last Filed: 08/07/23 07:35> Physician Progress Note: [No evidence of abnormality on X-ray. Will do contrast enhanced CT Chest for PE.] Discharge Plan Discharge Patient Disposition: PLACED OBSERVATION Discharge Problem: Heart palpitations, Discomfort, Weakness, Pulmonary embolism Prescriptions: No Action methylprednisolone [Medrol (Jamil)] 4 mg tablets,dose pack 4 mg PO DAILY Qty: 21 0RF fexofenadine [Nina Allergy] 180 mg tablet 180 mg PO QDAY PRN (Reason: ALLERGIES) escitalopram oxalate 20 mg tablet 20 mg PO QDAY Qty: 30 5RF cyclobenzaprine 10 mg tablet 10 mg PO TID PRN (Reason: muscle spasm) Qty: 30 0RF buspirone 10 mg tablet 10 mg PO BID Qty: 60 5RF thiamine HCl (vitamin B1) 100 mg tablet 100 mg PO QDAY Qty: 30 2RF cyanocobalamin (vitamin B-12) 1,000 mcg capsule 1,000 mcg PO QDAY Qty: 30 1RF chlordiazepoxide HCl 5 mg capsule 5 mg PO QDAY Qty: 30 1RF Rx Instructions: 30 day supply. etonogestrel-ethinyl estradiol [NuvaRing] 0.12-0.015 mg/24 hr ring 1 vag ring vaginal Q4W Qty: 3 5RF Rx Instructions: leave in place for 3 weeks, remove old device, add new device. Remove that device after 3 weeks. albuterol sulfate 90 mcg/actuation HFA aerosol inhaler 2 puff inhalation Q4-6H PRN (Reason: shortness of breath or wheezing) Qty: 6.7 2RF Did you review [place] REVENUE COORDINATOR for ALL controlled substances?: Not Applicable ED Provider: SEBASTIEN MCCRACKEN Condition: Stable
--- NOTE | 2023-08-07 08:17 | CT ---
EXAM: CHEST CTA WITH CONTRAST (PULMONARY ARTERY) HISTORY: Dyspnea. Tachycardia. TECHNIQUE: CTA acquisition of the chest from the thoracic inlet to the upper abdomen following IV con trast administration timed to filling of the pulmonary artery. IV Contrast: 100 mL Omnipaque 350.. 3D/MIP/VR images were utilized. CT Dose Reduction Techniques Employed: Yes COMPARISON: Chest radiograph 08/07/2023 FINDINGS: Lines, Tubes, Devices: None. Pulmonary Embolism: - Diagnostic quality: Adequate. - Central(Main/Lobar/Interlobar): Multiple filling defects within the lobar arteries of the right upp er lobe, right lower lobe, and left lower lobe. - Peripheral (Segmental/Subsegmental): There are multiple filling defects within the segmental pulmon marita arteries of the right upper lobe, right middle lobe and left lower lobe. - Right ventricle/Left ventricle ratio (normal <0.9): Normal. Lung Parenchyma and Airways: Central airways are patent without endobronchial lesion. Minimal atelec tasis in the right lower lobe. No suspicious pulmonary nodule. Pleural Space: No pleural effusion. No pleural thickening. No pneumothorax. Thoracic Inlet, Mediastinum, and Bharati: Thyroid gland is normal. No lymphadenopathy. Heart, Vessels, and Pericardium: -Aorta is normal in caliber with no atherosclerotic calcifications. -Main pulmonary artery is normal in caliber. -Heart chambers are not enlarged. -No significant valvular calcifications. -No significant coronary artery calcifications, however exam is not optimized for evaluation. -No pericardial effusion or thickening. Bones and Soft Tissues: Mild chronic anterior wedge compression deformities in the mid-thoracic spine . Mild degenerative changes of the thoracic spine. Chest wall soft tissues are within normal limits . Upper Abdomen: Within normal limits. IMPRESSION: Multiple lobar and segmental pulmonary emboli. No right heart strain. CRITICAL RESULTS COMMUNICATION: Findings were communicated with nurse Zapien at [facility] by Dr. Oswaldo Sapp on 08/07/[address] scans are performed using dose optimization techniques as appropriate to the performed exam an d include at least one of the following: Automated exposure control, adjustment of the mA and/or kV according t o size, and the use of iterative reconstruction technique.
[2023-08-07] MEDS ORDERED: LOVENOX SUBCUT ONE (08:23)
[2023-08-07] MEDS ORDERED: TYLENOL PO PRN (09:08)
[2023-08-07] MEDS ORDERED: ZOFRAN 4 MG/2 ML IVP PRN (09:08)
--- NOTE | 2023-08-07 11:48 | PCM ---
Date of Service Date Seen by Provider: 08/07/23 Time Seen by Provider: 11:00 Admit Day/Time Admission Date: 08/07/23 Admission Time: 09:08 Reason for Admission Chief Complaint: MULTIPLE PULMONARY EMBOLI Hospital Provider Hospital Provider: CORAL STUBBS PA-C, [facility] [place] Primary Care Physician Primary Care Physician: NERISSA BARRIGA MD History of Present Illness History of Present Illness: Patient is a 38-year-old female from home with past medical history of B12 deficiency, fibromyalgia, anxiety, history of alcohol use who presents to the ER with worsening shortness of breath and elevated heart rate over the past 2 weeks. She states that she could just be standing in the kitchen and her heart rate was 140 on her watch. She has been getting more and more short of breath with minimal activity. She denies history of blood clots. No family history of clotting disorders. No recent travel or surgeries. No recent pregnancies. Patient states that she was just started on NuvaRing 1 month ago. She states she was not on any hormonal control prior to that. She denies tobacco use but states that she vapes. In the ER she was noted to have normal vitals and unremarkable labs. However her CTA of the chest did show multiple bilateral pulmonary emboli. No evidence of heart strain. Troponin and BNP normal. Patient was given 1 mg/kg of Lovenox in the ER and admitted for further evaluation. Case Discussed With Case Discussed With: Patient's case was discussed with the ER Physicians, Dr. Gutierrez. [facility] Medical History Heavy alcohol consumption F10.90 - Alcohol use, unspecified, uncomplicated (ICD-10) Depression F32.9 - Major depressive disorder, single episode, unspecified (ICD-10) Anxiety Lexapro 10mg to 20mg 11/17/22. Buspar 7.5mg BID to 10mg BID. 11/17/22 F41.9 - Anxiety disorder, unspecified (ICD-10) History of alcohol use Self reported, self controlled, self eliminated! No DUI, no public intox. Z87.898 - Personal history of other specified conditions (ICD-10) Surgical History Wrist surgery History of section times 3 Z98.891 - History of uterine scar from previous surgery (ICD-10) Family History Mother Hypertension FATHER Diabetes Hyperlipidemia Maternal grandmother Cancer breast and uterine Paternal grandmother Diabetes Social History Smoking and tobacco status: Current every day smoker Tobacco type: e-cigarettes Tobacco: How many years used: 3 Quit status: considering quitting Second hand smoke exposure: No Alcohol intake: current Alcohol intake frequency: a few times a month Alcohol type: beer Substance use type: does not use Phoebe/oriental orthodox: UATSDIN Special phoebe needs: No Adopted: No Household members: children Housing: house Marital status: D Lives independently: Yes Number of children: 5 Highest education level completed: Bachelor's degree Financial difficulty paying for basics: not very hard service: No snf: No Current occupational status: previously employed Current occupational exposures/hazards: No Pets and animals: No Leisure activites: other History of recent travel: No Sexually active: No Do you think of yourself as: straight/heterosexual Current gender identity: female Seatbelt use: always Helmet use: No Drives intoxicated or rides with intoxicated driver examiner: No Water heater temperature set < 120 degrees: Yes Working smoke detector in home: Yes Fire extinguisher in home: Yes Carbon monoxide detector in home: No (plan on purchasing ) Firearms in home: No Allergies Allergies Allergy/AdvReac Type Severity Reaction Status Date / Time No Known Allergies Allergy Verified 08/07/23 05:44 Current Medications Home Medications buspirone 10 mg tablet 10 mg PO BID #60 tabs 03/31/23 [Rx Confirmed 08/07/23 Last Taken 08/06/23] cyclobenzaprine 10 mg tablet 10 mg PO TID PRN muscle spasm #30 tabs 03/31/23 [Rx Confirmed 08/07/23 Last Taken Unknown] escitalopram oxalate 20 mg tablet 20 mg PO QDAY #30 tabs 03/31/23 [Rx Confirmed 08/07/23 Last Taken 08/06/23] etonogestrel 0.12 mg-ethinyl estradiol 0.015 mg/24 hr vaginal ring (NuvaRing) 1 vag ring vaginal Q4W #3 ea 07/02/23 [Rx Confirmed 08/07/23 Last Taken Unknown] chlordiazepoxide HCl 5 mg capsule 5 mg PO QDAY #30 caps 07/23/23 [Rx Confirmed 08/07/23 Last Taken 08/03/23] cyanocobalamin (vitamin B-12) 1,000 mcg capsule 1,000 mcg PO QDAY #30 caps 07/23/23 [Rx Confirmed 08/07/23 Last Taken Unknown] thiamine HCl (vitamin B1) 100 mg tablet 100 mg PO QDAY #30 tabs 07/23/23 [Rx Confirmed 08/07/23 Last Taken Unknown] albuterol sulfate 90 mcg/actuation aerosol inhaler 2 puff inhalation Q4-6H PRN shortness of breath or wheezing #6.7 grams 08/04/23 [Rx Confirmed 08/07/23 Last Taken 08/06/23] methylprednisolone 4 mg tablets in a dose pack (Medrol (Jamil)) 4 mg PO DAILY #21 ea 08/06/23 [Rx Confirmed 08/07/23 Last Taken Unknown] Home Acetaminophen (Acetaminophen 325 Mg Tablet) 650 mg PO Q4H PRN PRN Reason: Mild Pain Buspirone HCl (Buspirone Hcl 10 Mg Tablet) 10 mg PO BID [facility] Last Admin: 08/07/23 12:57 Dose: 10 mg Chlordiazepoxide HCl (Chlordiazepoxide Hcl 5 Mg Capsule) 5 mg PO DAILY [facility] Last Admin: 08/07/23 12:57 Dose: 5 mg Cyclobenzaprine HCl (Cyclobenzaprine Hcl 10 Mg Tablet) 10 mg PO TID PRN PRN Reason: muscle spasms Last Admin: 08/07/23 12:57 Dose: 10 mg Enoxaparin Sodium (Enoxaparin Sodium 100 Mg/Ml Syr) 80 mg SUBCUT Q12HR [facility] Escitalopram Oxalate (Escitalopram Oxalate 10 Mg Tablet) 20 mg PO DAILY [facility] Last Admin: 08/07/23 12:57 Dose: 20 mg Ondansetron HCl (Ondansetron Hcl/Pf 4 Mg/2 Ml Sdv) 4 mg IVP Q6H PRN PRN Reason: Nausea / Vomiting Sodium Chloride (0.9% Sodium Chloride 10 Ml Disp.Syrin) 1 syr IVF PRN PRN PRN Reason: To flush IV Discontinued Medications Enoxaparin Sodium (Enoxaparin Sodium 100 Mg/Ml Syr) 86 mg SUBCUT ONCE ONE Stop: 08/07/23 08:24 Last Admin: 08/07/23 08:28 Dose: 86 mg Sodium Chloride (Sodium Chloride) 1,000 mls @ 1,000 mls/hr IV BOLUS ONE Stop: 08/07/23 07:08 Last Infusion: 08/07/23 07:57 Dose: Infused Opioid Naive vs. Tolerant Does Patient Take Opioids?: No Is Patient Opioid Naive?: Yes What is Opioid Naive?: *Opioid Naive implies the patient is not already taking opioids or not chronically receiving opioids on a daily basis. *PRN dosing is not "usually" associated with tolerance. *Patients are at higher risk of over-sedation and aspiration. Is Patient Opioid Tolerant?: No What is Opioid Tolerant?: *Opioid Tolerance implies less than the expected response to an opioid. *Acquired tolerance is defined by the patient taking 60mg of oral morphine daily (or equianalgesic dose of another opioid) for 1 week or more. *Often associated with chronic pain. *May take more than usual dose to achieve desired pain control. Review of Systems Constitutional: Reports Fatigue Head: Reports Normocephalic and Atraumatic Cardiovascular: Reports Palpitations and Other (+high HR); Denies Chest pain, Chest Pressure or Edema Respiratory: Reports Shortness of air; Denies Cough Gastrointestinal: Denies Nausea, Vomiting, Diarrhea, Abdominal pain or Melena Genitourinary: Denies Dysuria or Frequency Dermatologic: Denies Rashes Neurological: Denies Headache or Weakness Physical examination Most Recent Vital Signs: Most Recent Vital Signs Temperature 98.3 F 08/07/23 09:49 Temperature Source Oral 08/07/23 09:49 Temperature Source Infrared 08/07/23 05:32 Pulse Rate 65 08/07/23 09:49 Respiratory Rate 16 08/07/23 09:49 Blood Pressure 157/95 H 08/07/23 05:32 Blood Pressure Left Arm 133/79 08/07/23 09:49 Blood Pressure Position Sitting 08/07/23 09:49 O2 Sat by Pulse Oximetry 95 08/07/23 09:49 Oxygen Delivery Method Room Air 08/07/23 11:00 Fraction of Inspired Oxygen (FIO2) 95 08/07/23 09:45 Height 5 ft 7 in 01/26/24 09:49 Weight 192 lb 08/07/23 09:49 Telemetry Type Remote Telemetry 08/07/23 10:18 Telemetry Monitoring Started 08/07/23 10:18 Telemetry Heart Rate 60 08/07/23 10:18 EKG DE Interval 0.16 08/07/23 10:18 EKG QRS Interval 0.06 08/07/23 10:18 Telemetry Strip Reading NSR 08/07/23 10:18 Appearance: Positive Well-appearing, Well-nourished, No Apparent Distress and Alert and Oriented x3 Skin: Positive [place], Warm, Good Turgor and Good Color; Negative Rashes HEENT: Positive Normocephalic and Atraumatic Neck: Positive Supple and Midline Trachea Chest/Lungs: Positive Clear to Auscultation Bilaterally; Negative Rales, Rhonci or Wheezes Heart: Positive RRR GI/: Positive Soft, Nontender, Bowel Sounds Normal and No Distention Extremities: Negative Edema Neurological: Positive Cranial Nerves Intact, Alert, Oriented and Muscle Strength 5/5 in Upper and Lower Extremities Bilaterally Psychiatric: Positive Oriented x4, Appropriate Mood and Appropriate Affect Labs This Visit Labs This Visit: Labs This Visit 08/07/23 08/07/23 08/07/23 06:18 06:20 07:56 WBC 5.99 RBC 4.46 Hgb 12.2 Hct 37.2 MCV 83.4 MCH 27.4 MCHC 32.8 RDW Coeff of Gerardo 13.3 Plt Count 171 Immature Gran % (Auto) 0.2 Neut % (Auto) 69.4 Lymph % (Auto) 22.5 [place] % (Auto) 7.7 Eos % (Auto) 0.0 Baso % (Auto) 0.2 Neut # (Auto) 4.2 Lymph # (Auto) 1.4 [place] # (Auto) 0.5 Eos # (Auto) 0.0 Baso # (Auto) 0.0 Immature Gran # (Auto) 0.0 Sodium 139.9 Potassium 4.09 Chloride 112.5 H Carbon Dioxide 17.0 L Anion Gap 14.49 BUN 10.4 Creatinine 0.64 Estimated GFR (MDRD) 103.00 BUN/Creatinine Ratio 16.25 Glucose 115.4 H Lactic Acid 1.26 Calcium 9.28 Total Bilirubin 0.92 AST 24.6 ALT 18.3 Alkaline Phosphatase 72.8 Troponin I < 0.012 NT-Pro-B Natriuret Pep 78 Total Protein 7.61 Albumin 4.55 Globulin 3.06 Albumin/Globulin Ratio 1.48 Urine Color Yellow Urine Clarity Clear Urine pH 6.0 Ur Specific [place] >=1.030 Urine Protein 1+ H Urine Glucose (UA) Negative Urine Ketones Trace H Urine Blood Trace-intact H Urine Nitrite Negative Urine Bilirubin Negative Urine Urobilinogen 0.2 Ur Leukocyte Esterase Negative Urine Microscopic RBC 2-5 Urine Microscopic WBC 0-2 Ur Squamous Epith Cells 30-50 Urine Mucus 1+ Urine Opiates Screen Negative Ur Oxycodone Screen Negative Urine Methadone Screen Negative Ur Barbiturates Screen Negative U Tricyclic Antidepress Negative Ur Phencyclidine Scrn Negative Ur Amphetamine Screen Negative U Methamphetamines Scrn Negative U Benzodiazepines Scrn Positive H Urine Cocaine Screen Negative U Cannabinoids Screen Negative Imaging Imaging: EXAM: CHEST CTA WITH CONTRAST (PULMONARY ARTERY) HISTORY: Dyspnea. Tachycardia. TECHNIQUE: CTA acquisition of the chest from the thoracic inlet to the upper abdomen following IV contrast administration timed to filling of the pulmonary artery. IV Contrast: 100 mL Omnipaque 350.. 3D/MIP/VR images were utilized. CT Dose Reduction Techniques Employed: Yes COMPARISON: Chest radiograph 08/07/2023 FINDINGS: Lines, Tubes, Devices: None. Pulmonary Embolism: - Diagnostic quality: Adequate. - Central(Main/Lobar/Interlobar): Multiple filling defects within the lobar arteries of the right upper lobe, right lower lobe, and left lower lobe. - Peripheral (Segmental/Subsegmental): There are multiple filling defects within the segmental pulmonary arteries of the right upper lobe, right middle lobe and left lower lobe. - Right ventricle/Left ventricle ratio (normal <0.9): Normal. Lung Parenchyma and Airways: Central airways are patent without endobronchial lesion. Minimal atelectasis in the right lower lobe. No suspicious pulmonary nodule. Pleural Space: No pleural effusion. No pleural thickening. No pneumothorax. Thoracic Inlet, Mediastinum, and Bharati: Thyroid gland is normal. No lymphadenopathy. Heart, Vessels, and Pericardium: -Aorta is normal in caliber with no atherosclerotic calcifications. -Main pulmonary artery is normal in caliber. -Heart chambers are not enlarged. -No significant valvular calcifications. -No significant coronary artery calcifications, however exam is not optimized for evaluation. -No pericardial effusion or thickening. Bones and Soft Tissues: Mild chronic anterior wedge compression deformities in the mid-thoracic spine. Mild degenerative changes of the thoracic spine. Chest wall soft tissues are within normal limits. Upper Abdomen: Within normal limits. IMPRESSION: Multiple lobar and segmental pulmonary emboli. No right heart strain. EXAM: CHEST, 2 VIEWS. HISTORY: Shortness of breath COMPARISON: 08/06/2023 IMPRESSION: Cardiomediastinal countours appear stable. There is no focal pulmonary consolidation. No pleural effusion or pneumothorax. No acute cardiopulmonary process. Review Statement Review Statement: I have independently reviewed and interpreted the labs/EKGs/imaging that were ordered by the ER provider. I have reviewed all outside records that are available currently in our EMR including imaging/notes/labs from previous visits. Plan Plan: 1. Multiple bilateral PEs - New onset. Pt removed nuvaring. She will need to f/u outpatient with obgyn in future regarding control. Discussed heme/onc referral outpatient as well. In meantime, check echo, lovenox 1 mg/kg. Will check with her pharmacy regarding shannon of novel agents. 2. Hx of alcohol use - Cont home meds 3. Anxiety - Cont home meds DVT Prophylaxis: Lovenox Time Spent: Greater than 80 minutes spent with patient, 50% of the time spent with this patient was devoted to counseling and coordination of care. [facility]annin minutes spent discussing advance care planning. FULL CODE Smoking Cessation: 3 minutes spent discussing smoking cessation. Admit to: Obs Discussed Plan of Care with Dr. Brandon Connors. Medications Medication Orders: Medications Ordered Category Date Time Status 0.9 % Sodium Chloride [Saline Flush] Meds 08/07/23 06:08 Active 1 syr IVF PRN PRN Acetaminophen [Tylenol] Meds 08/07/23 09:08 Active 650 mg PO Q4H PRN Enoxaparin Sodium [Lovenox] Meds 08/07/23 21:00 Active 80 mg SUBCUT Q12HR Ondansetron HCl/Pf [Zofran 4 mg/2 ml] Meds 08/07/23 09:08 Active 4 mg IVP Q6H PRN
[2023-08-07] MEDS ORDERED: FLEXERIL PO PRN (11:55)
[2023-08-07 12:35] LABS: URINE PREGNANCY TEST NEGATIVE (NEGATIVE)
[2023-08-07] MEDS: LIBRIUM PO SCH (12:57)
[2023-08-07] MEDS: LEXAPRO PO SCH (12:57)
[2023-08-07] MEDS: BUSPAR PO SCH ×2 (12:57→20:35)
--- NOTE | 2023-08-07 13:08 | ECHO2D ---
Date of Exam: 08/07/2023 Ordering Physician: HOSPITALIST-CORAL STUBBS NP; PCP- DR. BARRIGA Room #: [id number] Reason for Echo: PALPITATIONS, WEAKNESS, PULMONARY EMBOLI M-Mode Normal Adult Results LV Dimensions Normal Adult Results AoV Opening excursions >1.6 >1.6 LVEDD-base- 3.5-5.8 4.4 Ao root dimensions 2.0-3.7 3.8 LVESD-base- 3.1-4.6 L. Atrium dimensions 1.9-3.8 3.6 Post. Wall thickness 0.8-1.1 1.2 IV septum (thickness) 0.7-1.2 1.2 Post. Wall excursion 0.72-1.3 NORMAL Septal motion NORMAL Systolic motion R. Ventricular cavity 1.5-2.0 NORMAL LVEF 60% 73% Paradoxical septal wall motion NORMAL 2-D : 2-D M Mode Echocardiogram was performed using apical four chamber and left parasternal long and short axis views. Mitral, tricuspid and aortic valves appear to be normal. Contractility of the left ventricle seems to be normal, so is the cavity size. Left atrial cavity size and aortic root appear to be normal. There is no pericardial effusion. There is no thrombus noted in the left ventricle or left atrial cavity. COLOR FLOW: DOPPLER: A WAVE GREATER THAN E WAVE ON MITRAL VALVE VELOCITY. M-MODE: MV: NORMAL AV: NORMAL TV: NORMAL PV: NORMAL CHAMBER SIZE: BORDERLINE DILATED AORTIC ROOT WALL MOTION: NORMAL PERICARDIUM: NORMAL INTERPRETATION: 1. BORDERLINE LEFT VENTRICULAR HYPERTROPHY. 2. BORDERLINE AORTIC ROOT DILATION. 3. EVIDENCE OF DIASTOLIC DYSFUNCTION. 4. ALL VALVES NORMAL. 5. LEFT VENTRICLE SIZE AND LEFT VENTRICULAR CONTRACTILITY NORMAL. 6. NO EVIDENCE OF RIGHT VENTRICLE OVERLOAD. MTDD
[2023-08-07] MEDS: LOVENOX SUBCUT SCH (20:35)
[2023-08-08 05:49] LABS: BASOPHILS % (AUTO) 0.4 % (0.0-3.0); EOSINOPHILS % (AUTO) 0.2 % (0.0-7.0); HEMATOCRIT 32.5 % (37.0-47.0); HEMOGLOBIN 10.5 g/dl (12.0-16.0); LYMPHOCYTES # (AUTO) 2.5 K/uL (0.60-3.4); LYMPHOCYTES % (AUTO) 51.4 (10.0-50.0); MEAN CORPUSCULAR HEMOGLOBIN 27.6 pg (27.0-31.0); MEAN CORPUSCULAR HGB CONC 32.3 (31.8-35.4); MEAN CORPUSCULAR VOLUME 85.3 fl (81.0-99.0); MONOCYTES # (AUTO) 0.3 K/uL (0.4-2.0); MONOCYTES % (AUTO) 6.4 (0-10); NEUTROPHILS % (AUTO) 41.6 % (42.2-75.2); PLATELET COUNT 128 10^3/uL (140-440); RDW COEFFICIENT OF VARIATION 13.6 % (11.6-14.8); RED BLOOD COUNT 3.81 10^6/ul (4.20-5.40); WHITE BLOOD COUNT 4.86 K/ul (4.6-10.2)
[2023-08-08 06:03] LABS: ALANINE AMINOTRANSFERASE 14.1 U/L (0-35); ALBUMIN 3.68 g/dL (3.5-5.0); ASPARTATE AMINO TRANSFERASE 17.7 U/L (14-36); BILIRUBIN,TOTAL 0.53 mg/dL (0.2-1.3); CALCIUM 8.29 mg/dL (8.4-10.2); CARBON DIOXIDE 19.8 mmol/L (22-30.0); CHLORIDE 111.3 mmol/L (98-107); CREATININE 0.72 mg/dL (0.60-1.30); GLUCOSE 98.6 mg/dL (74-106); POTASSIUM 3.68 mmol/L (3.5-5.1); SODIUM 138.1 mmol/L (134.5-145); TOTAL PROTEIN 6.27 g/dL (6.3-8.2)
[2023-08-08] MEDS: BUSPAR PO SCH (08:39)
[2023-08-08] MEDS: LEXAPRO PO SCH (08:39)
[2023-08-08] MEDS: LIBRIUM PO SCH (08:39)
[2023-08-08] MEDS: LOVENOX SUBCUT SCH (08:41)
[2023-08-08 09:49] VITALS: BP 132/81; PULSE 58; RESP 20; TEMP 98.4
--- NOTE | 2023-08-08 10:46 | DCSUM ---
Admission Date Admission Date: 08/07/23 Discharge Date Discharge Date: 08/08/23 Admission Diagnosis Admission Diagnosis: 1. Multiple bilateral PEs Discharge Diagnosis Discharge Diagnosis: 1. Multiple bilateral PEs 2. Hx of alcohol use 3. Anxiety Hospital Provider Hospital Provider: CORAL STUBBS PA-C, [facility] Primary Care Physician Primary Care Physician: NERISSA BARRIGA MD Summary of History and Physical Summary of History and Physical: Patient is a 38-year-old female from home with past medical history of B12 deficiency, fibromyalgia, anxiety, history of alcohol use who presents to the ER with worsening shortness of breath and elevated heart rate over the past 2 weeks. She states that she could just be standing in the kitchen and her heart rate was 140 on her watch. She has been getting more and more short of breath with minimal activity. She denies history of blood clots. No family history of clotting disorders. No recent travel or surgeries. No recent pregnancies. Patient states that she was just started on NuvaRing 1 month ago. She states she was not on any hormonal control prior to that. She denies tobacco use but states that she vapes. In the ER she was noted to have normal vitals and unremarkable labs. However her CTA of the chest did show multiple bilateral pulmonary emboli. No evidence of heart strain. Troponin and BNP normal. Patient was given 1 mg/kg of Lovenox in the ER and admitted for further evaluation. Hospital Course Subjective: Patient was treated with treatment dose lovenox. Echo performed, results as below. No evidence of right heart strain. BNP and trop normal. HR normal on tele. She did not require oxygen. She has removed her nuvaring which is her only risk factor at this time. Discussed f/u with obgyn to discuss control in the future and to be sure to tell them about her PEs. Also discussed considering heme/onc outpatient referral to investigate further, as she was only on nuvaring for one month, symptoms started after only a couple weeks. Could miss an un derlying blood disorder. Pt will need anticoagulated for at least 3 months. Through the [facility] b program we were able to get her Xarelto at [facility] for $45 this month and only 15$ each month after that. Pt states this is doable. Will discharge home on xarelto to start tonight. Appearance: Pleasant, No Apparent Distress and Alert HEENT: Supple CVS: No Murmur Abdomen: Soft, Non-Tender and No Distention Respiratory: No Accessory Muscle Use Extremities: No Edema Vital Signs: Most Recent Vital Signs Temperature 98.4 F 08/08/23 09:48 Temperature Source Oral 08/08/23 09:48 Temperature Source Infrared 08/07/23 05:32 Pulse Rate 58 L 08/08/23 09:48 Respiratory Rate 20 08/08/23 09:48 Blood Pressure 132/81 08/08/23 09:48 Blood Pressure Mean 98 08/08/23 09:48 Blood Pressure Left Arm 133/79 08/07/23 09:49 Blood Pressure Location Left Arm 08/08/23 09:48 Blood Pressure Position Sitting 08/08/23 09:48 O2 Sat by Pulse Oximetry 96 08/08/23 09:48 Oxygen Delivery Method Room Air 08/08/23 09:49 Fraction of Inspired Oxygen (FIO2) 95 08/07/23 21:26 Height 5 ft 7 in 08/07/23 09:49 Weight 192 lb 08/07/23 09:49 Telemetry Type Remote Telemetry 08/08/23 07:00 Telemetry Monitoring Continues 08/08/23 07:00 Telemetry Heart Rate 60 08/08/23 07:00 Telemetry SPO2 95 08/08/23 07:00 EKG NM Interval 0.18 08/08/23 07:00 EKG QRS Interval 0.06 08/08/23 07:00 Telemetry Strip Reading SR 08/08/23 07:00 Imaging: Date of Service: 08/07/23 EXAM: CHEST CTA WITH CONTRAST (PULMONARY ARTERY) HISTORY: Dyspnea. Tachycardia. TECHNIQUE: CTA acquisition of the chest from the thoracic inlet to the upper abdomen following IV contrast administration timed to filling of the pulmonary artery. IV Contrast: 100 mL Omnipaque 350.. 3D/MIP/VR images were utilized. CT Dose Reduction Techniques Employed: Yes COMPARISON: Chest radiograph 08/07/2023 FINDINGS: Lines, Tubes, Devices: None. Pulmonary Embolism: - Diagnostic quality: Adequate. - Central(Main/Lobar/Interlobar): Multiple filling defects within the lobar arteries of the right upper lobe, right lower lobe, and left lower lobe. - Peripheral (Segmental/Subsegmental): There are multiple filling defects within the segmental pulmonary arteries of the right upper lobe, right middle lobe and left lower lobe. - Right ventricle/Left ventricle ratio (normal <0.9): Normal. Lung Parenchyma and Airways: Central airways are patent without endobronchial lesion. Minimal atelectasis in the right lower lobe. No suspicious pulmonary nodule. Pleural Space: No pleural effusion. No pleural thickening. No pneumothorax. Thoracic Inlet, Mediastinum, and Bharati: Thyroid gland is normal. No lymphadenopathy. Heart, Vessels, and Pericardium: -Aorta is normal in caliber with no atherosclerotic calcifications. -Main pulmonary artery is normal in caliber. -Heart chambers are not enlarged. -No significant valvular calcifications. -No significant coronary artery calcifications, however exam is not optimized for evaluation. -No pericardial effusion or thickening. Bones and Soft Tissues: Mild chronic anterior wedge compression deformities in the mid-thoracic spine. Mild degenerative changes of the thoracic spine. Chest wall soft tissues are within normal limits. Upper Abdomen: Within normal limits. IMPRESSION: Multiple lobar and segmental pulmonary emboli. No right heart strain. Reason for Echo: PALPITATIONS, WEAKNESS, PULMONARY EMBOLI M-Mode Normal Adult Results LV Dimensions Normal Adult Results AoV Opening excursions >1.6 >1.6 LVEDD-base- 3.5-5.8 4.4 Ao root dimensions 2.0-3.7 3.8 LVESD-base- 3.1-4.6 L. Atrium dimensions 1.9-3.8 3.6 Post. Wall thickness 0.8-1.1 1.2 IV septum (thickness) 0.7-1.2 1.2 Post. Wall excursion 0.72-1.3 NORMAL Septal motion NORMAL Systolic motion R. Ventricular cavity 1.5-2.0 NORMAL LVEF 60% 73% Paradoxical septal wall motion NORMAL 2-D : 2-D M Mode Echocardiogram was performed using apical four chamber and left parasternal long and short axis views. Mitral, tricuspid and aortic valves appear to be normal. Contractility of the left ventricle seems to be normal, so is the cavity size. Left atrial cavity size and aortic root appear to be normal. There is no pericardial effusion. There is no thrombus noted in the left ventricle or left atrial cavity. COLOR FLOW: DOPPLER: A WAVE GREATER THAN E WAVE ON MITRAL VALVE VELOCITY. M-MODE: MV: NORMAL AV: NORMAL TV: NORMAL PV: NORMAL CHAMBER SIZE: BORDERLINE DILATED AORTIC ROOT WALL MOTION: NORMAL PERICARDIUM: NORMAL INTERPRETATION: 1. BORDERLINE LEFT VENTRICULAR HYPERTROPHY. 2. BORDERLINE AORTIC ROOT DILATION. 3. EVIDENCE OF DIASTOLIC DYSFUNCTION. 4. ALL VALVES NORMAL. 5. LEFT VENTRICLE SIZE AND LEFT VENTRICULAR CONTRACTILITY NORMAL. 6. NO EVIDENCE OF RIGHT VENTRICLE OVERLOAD. Lab Results Last 24 Hours: 08/08/23 08/07/23 04:59 06:30 WBC 4.86 RBC 3.81 L Hgb 10.5 L Hct 32.5 L MCV 85.3 MCH 27.6 MCHC 32.3 RDW Coeff of Gerardo 13.6 Plt Count 128 L Immature Gran % (Auto) 0.0 Neut % (Auto) 41.6 L Lymph % (Auto) 51.4 H Cabell % (Auto) 6.4 Eos % (Auto) 0.2 Baso % (Auto) 0.4 Neut # (Auto) 2.0 Lymph # (Auto) 2.5 Cabell # (Auto) 0.3 L Eos # (Auto) 0.0 Baso # (Auto) 0.0 Immature Gran # (Auto) 0.0 Sodium 138.1 Potassium 3.68 Chloride 111.3 H Carbon Dioxide 19.8 L Anion Gap 10.68 BUN 16.0 Creatinine 0.72 Estimated GFR (MDRD) 90.00 BUN/Creatinine Ratio 22.22 Glucose 98.6 Calcium 8.29 L Total Bilirubin 0.53 AST 17.7 ALT 14.1 Alkaline Phosphatase 55.0 Total Protein 6.27 L Albumin 3.68 Globulin 2.59 Albumin/Globulin Ratio 1.42 Urine Test Negative Discharge Instructions Discharge Planning: Discharge Planning > [address] Brandon Connors. Discharge Medications: Medications at Discharge (Home Meds & RX) buspirone 10 mg tablet 10 mg PO BID #60 tabs 03/31/23 cyclobenzaprine 10 mg tablet 10 mg PO TID PRN muscle spasm #30 tabs 03/31/23 escitalopram oxalate 20 mg tablet 20 mg PO QDAY #30 tabs 03/31/23 etonogestrel 0.12 mg-ethinyl estradiol 0.015 mg/24 hr vaginal ring (NuvaRing) 1 vag ring vaginal Q4W #3 ea 07/02/23 chlordiazepoxide HCl 5 mg capsule 5 mg PO QDAY #30 caps 07/23/23 cyanocobalamin (vitamin B-12) 1,000 mcg capsule 1,000 mcg PO QDAY #30 caps 07/23/23 thiamine HCl (vitamin B1) 100 mg tablet 100 mg PO QDAY #30 tabs 07/23/23 albuterol sulfate 90 mcg/actuation aerosol inhaler 2 puff inhalation Q4-6H PRN shortness of breath or wheezing #6.7 grams 08/04/23 methylprednisolone 4 mg tablets in a dose pack (Medrol (Jamil)) 4 mg PO DAILY #21 ea 08/06/23 Discharge Plan Discharge Discharge Orders: Discharge Patient (ONCE); Ordered 08/08/23 Ordered By: CORAL STUBBS Activity Restrictions/Additional Instructions: DISCHARGE TO HOME F/U WITH PCP RETURN TO ER WITH WORSENING SYMPTOMS SEE IF YOUR PCP HAS SAMPLES OF XARELTO WILL NEED BLOOD THINNER AT LEAST 3 MONTHS TELL ANY PROVIDER YOUR HISTORY OF BLOOD CLOTS WHEN DISCUSSING CONTROL IN THE FUTURE F/U WITH OBGYN CONSIDER HEME/ONC REFERRAL OUTPATIENT Instructions: Pulmonary Embolism (GEN) Patient Disposition: HOME SELF-CARE Prescriptions: New Xarelto 15 mg tablet 15 mg PO BID 21 Days Qty: 42 0RF Rx Instructions: must administer with evening meal. 340b. Xarelto 20 mg tablet 20 mg PO DAILY Qty: 30 0RF Rx Instructions: START ON DAY 22. 340B. Must administer with evening meal. Continued escitalopram oxalate 20 mg tablet 20 mg PO QDAY Qty: 30 5RF cyclobenzaprine 10 mg tablet 10 mg PO TID PRN (Reason: muscle spasm) Qty: 30 0RF buspirone 10 mg tablet 10 mg PO BID Qty: 60 5RF thiamine HCl (vitamin B1) 100 mg tablet 100 mg PO QDAY Qty: 30 2RF Hold Instructions: Has not started yet cyanocobalamin (vitamin B-12) 1,000 mcg capsule 1,000 mcg PO QDAY Qty: 30 1RF Hold Instructions: Has not started yet chlordiazepoxide HCl 5 mg capsule 5 mg PO QDAY Qty: 30 1RF Rx Instructions: 30 day supply. albuterol sulfate 90 mcg/actuation HFA aerosol inhaler 2 puff inhalation Q4-6H PRN (Reason: shortness of breath or wheezing) Qty: 6.7 2RF Discontinued methylprednisolone [Medrol (Jamil)] 4 mg tablets,dose pack 4 mg PO DAILY Qty: 21 0RF Hold Instructions: Order from ER Yesterday etonogestrel-ethinyl estradiol [NuvaRing] 0.12-0.015 mg/24 hr ring 1 vag ring vaginal Q4W Qty: 3 5RF Hold Instructions: Adverse Reaction Rx Instructions: leave in place for 3 weeks, remove old device, add new device. Remove that device after 3 weeks. Did you review [place] [employer] for ALL controlled substances?: Not Applicable Discussed opioids are addictive and Narcan is available by prescription or from pharmacy.: No Condition: Stable
== END 2023-08-08 13:50 | disposition home or self-care (01) ==
LOC: ED 05:13 → MEDSURG B 05:13
PROVIDERS: ADMIT Hospitalist; ATTEND Physician Assistant
DX: R53.1 Weakness; R00.2 Palpitations; I26.99 Other pulmonary embolism without acute cor pulmonale; Z87.898 Personal history of other specified conditions; R06.02 Shortness of breath; Z51.81 Encounter for therapeutic drug level monitoring; F41.9 Anxiety disorder, unspecified; F17.290 Nicotine dependence, other tobacco product, uncomplicated; Z79.899 Other long term (current) drug therapy